=== PATIENT | female | born 1940 | race Caucasian/White ===

== ENCOUNTER 2023-07-07 09:08 | Outpatient (OUT) | payer MEDICARE, MEDICAID, SELFPAY ==
--- NOTE | 2023-07-07 | CT_ITS ---
The [address] [address] Patient Name: SHEA MCKEON MRN: [id number] date: 1940 Sex: F Assigned Patient Location: CT Current Patient Location: Accession/Order Number: [id number] Exam Date: 07/07/2023 09:20 Report Date: 07/08/2023 08:21 At the request of: GEORGE MARTINEZ Procedure: CT sinus wo con EXAM: CT scan of the sinuses without contrast. Dose reduction technique used: Automated exposure control and/or adjustment of the mA and/or kV according to patient size and/or use of iterative reconstruction technique. REASON FOR EXAM: CSF rhinorrhea COMPARISON: CT scan dated 02/03/2016 FINDINGS: No fractures involving the paranasal sinuses or facial bones evident. Mild right maxillary sinus secretions and/or mucous retention cysts. Paranasal sinuses are otherwise clear. No paranasal sinus bony dehiscence, erosion or evidence of osteomyelitis. Normal pneumatization pattern of the paranasal sinuses. No kia bullosa of the turbinates. Rightward nasal septal deviation. Olfactory fossa depth measures 6 mm on the right and 6 mm on the left. Intact lamina papyracea with smooth/normal contour. Bilateral temporomandibular joint degenerative change. Remainder unremarkable. CT/CT sinus wo con IMPRESSION: 1. Mild right maxillary sinus secretions, paranasal sinuses and nasal passages are otherwise clear. 2. No fracture of the paranasal sinuses or facial bones is evident. Electronically authenticated by: EVGENY SHANKAR Date: 07/08/2023 08:21
== END 2023-07-07 09:09 | disposition home or self-care (01) ==
LOC: CT 09:08
PROVIDERS: PCP Family Medicine; Visit Provider Otolaryngology
DX: G96.01 Cranial cerebrospinal fluid leak, spontaneous (principal)
CPT/HCPCS: 70486